=== PATIENT | female | born 1980 | race Hispanic/Latino ===

== ENCOUNTER 2020-01-11 11:31 | Emergency (ER) | payer OTHER ==
[2020-01-11 11:51] VITALS: BP 168/93
[2020-01-11] MEDS ORDERED: predniSONE 50 MG TAB PO STA (12:02)
[2020-01-11] MEDS ORDERED: ALBUTEROL 2.5 MG/3 ML NEBU IH ONE (12:02)
--- NOTE | 2020-01-11 12:04 | Emergency Department Report ---
Blank Doc - Documentation Documentation: 39-year-old female has no history of asthma presents emerged department compla ining of a flareup of cough congestion coryza shortness of breath that worsens with exertion and mucus production yellowish and greenish in nature. She has been taking her breathing treatments at home with no improvement of her symptoms presents emerge department for further evaluation and treatment options. This initial assessment/diagnostic orders/clinical plan/treatment(s) is/are subject to change based on patients health status, clinical progression and re- assessment by fellow clinical providers in the ED. Further treatment and workup at subsequent clinical providers discretion. Patient/guardian urged not to elope from the ED as their condition may be serious if not clinically assessed and managed. Initial orders include: Chest x-ray Albuterol/Atrovent/prednisone
--- NOTE | 2020-01-11 12:39 | XRay Report ---
CHEST 2 VIEWS INDICATION / CLINICAL INFORMATION: Cough, shortness of breath, congestion, history of asthma. COMPARISON: Chest 2 views from 04/07/2008. FINDINGS: SUPPORT DEVICES: None. HEART / MEDIASTINUM: No significant abnormality. LUNGS / PLEURA: There is mild bilateral bronchial thickening centrally. The lungs are otherwise clear . No significant pleural effusion. No pneumothorax. ADDITIONAL FINDINGS: No significant additional findings. IMPRESSION: Bilateral bronchial thickening could represent bronchitis or sequela of reactive airway disease. No o ther acute abnormality of the chest. Signer Name: Jamarcus Garcia MD Signed: 01/11/2020 12:33 PM Workstation Name: [id number]
[2020-01-11] MEDS ORDERED: IPRATROPIUM 0.02% NEBU 2.5 ML IH ONE (13:46)
[2020-01-11] MEDS ORDERED: predniSONE 50 MG TAB ONE (14:19)
--- NOTE | 2020-01-11 15:03 | Emergency Department Report ---
HPI - General Chief Complaint: Dyspnea/Respdistress Time Seen by Provider: 01/11/20 13:40 - HPI HPI: This is a 39-year-old female who presents to the emergency department with complaint of a 4-day history of chest congestion, wheezing, coughing and shortness of breath. The patient has a history of asthma, hypertension and "prediabetes." She denies any tobacco or illicit drug use. She denies any fever, chest pain, lower extremity swelling, nausea, vomiting, diaphoresis. She has a primary care physician, Dr. Chaudhary, but has not seen them regarding her symptoms. No recent travel or sick contacts at home. No known exposure to anyone with COVID-19. Symptoms worsen with exertion. No known alleviating factors. She has been using her nebulizer treatment with some transient relief. ED Past Medical Hx - Past Medical History Previous Medical History?: Yes Hx Hypertension: Yes Hx Diabetes: No ("Prediabetes") Hx Asthma: Yes - Surgical History Past Surgical History?: Yes Additional Surgical History: tubal ligation. tonsills and adnoids removed - Social History Smoking Status: Never Smoker Substance Use Type: None - Medications Home Medications: Home Medications Medication Instructions Recorded Confirmed Last Taken Type ALBUTEROL NEB's [Proventil 0.083% 2.5 mg IH Q6H PRN #1 box 01/11/20 Unknown Rx NEBS] Albuterol Mdi (or & Nicu Only) 2 puff IH QID PRN #8.5 gram 01/11/20 Unknown Rx [ProAir HFA Inhaler] predniSONE [Deltasone] 50 mg PO QDAY #5 tab 01/11/20 Unknown Rx ED Review of Systems ROS: Stated complaint: CAMPOS/CONGESTED Other details as noted in HPI Comment: All other systems reviewed and negative Constitutional: denies: chills, fever Eyes: denies: eye pain ENT: denies: ear pain, throat pain Respiratory: cough, wheezing Cardiovascular: denies: chest pain, edema Gastrointestinal: denies: abdominal pain, vomiting Genitourinary: denies: dysuria, discharge Musculoskeletal: denies: back pain, arthralgia Skin: denies: rash, lesions Neurological: denies: headache, weakness Physical Exam - Physical Exam Vital Signs: Vital Signs 01/11/20 01/11/20 11:50 14:24 Temperature 98.2 F Pulse Rate 95 H 85 Respiratory 22 20 Rate Blood Pressure 168/93 [Right] O2 Sat by Pulse 93 95 Oximetry Physical Exam: GENERAL: The patient is well-developed well-nourished. HENT: Normocephalic. Atraumatic. Patient has moist mucous membranes. EYES: Extraocular motions are intact. NECK: Supple. Trachea is midline. CHEST/LUNGS: Mild wheezing without the chest. No tachypnea or accessory muscle use. There is no respiratory distress noted. HEART/CARDIOVASCULAR: Regular. There is no tachycardia. There is no murmur. ABDOMEN: Abdomen is soft, nontender. Patient has normal bowel sounds. Morbidly obese habitus. SKIN: Skin is warm and dry. NEURO: The patient is awake, alert, and oriented. The patient is cooperative. The patient has no focal neurologic deficits. Normal speech. MUSCULOSKELETAL: There is no tenderness or deformity. There is no limitation range of motion. Th ED Course Vital Signs 01/11/20 01/11/20 11:50 14:24 Temperature 98.2 F Pulse Rate 95 H 85 Respiratory 22 20 Rate Blood Pressure 168/93 [Right] O2 Sat by Pulse 93 95 Oximetry ED Medical Decision Making - Radiology Data Radiology results: image reviewed interpreted by me: Chest x-ray does not show any acute process. There are no pleural effusions, obvious pneumonia and there is no pneumothorax. No significant cardiomegaly. - Medical Decision Making This patient presents with a 4-day history of some wheezing, coughing, chest congestion. Chest x-ray does not show any pneumonia, pleural effusions, or any other acute process. On examination the patient has some mild wheezing throughout the chest but there is no signs of any respiratory or acute distress. She was given a dose of prednisone and a breathing treatment with both albuterol and ipratropium. Upon reevaluation she is improved. Vital signs have been reassuring throughout her ED course of the being afebrile. The patient had a pulse ox of 93% initially but I have personally seen the oxygen saturation mostly around 95 to 97% on room air. All this appears most likely consistent with an asthma exacerbation or some bronchitis. However, given her symptoms and this current pandemic, I explained that COVID-19 cannot be ruled out as a source of her symptoms. We discussed isolation/quarantine from those that are elderly, immunocompromised or chronically ill/debilitated. I recommended outpatient COVID-19 testing, as we do not have any [id number] testing here in the emergency department. She will return to the emergency department with any worsening of her symptoms or with any acute distress. Critical Care Time: No Critical care attestation.: If time is entered above; I have spent that time in minutes in the direct care of this critically ill patient, excluding procedure time. ED Disposition Clinical Impression: Bronchospasm Hypertension Qualifiers: Hypertension type: essential hypertension Qualified Code(s): I10 - Essential (primary) hypertension Asthma exacerbation Qualifiers: Asthma severity: unspecified severity Asthma persistence: unspecified Qualified Code(s): J45.901 - Unspecified asthma with (acute) exacerbation Disposition: TO HOME OR SELFCARE Is pt being admited?: No Condition: Stable Instructions: Asthma, Adult, Bronchospasm, Adult, Hypertension, Adult, Hypertension (ED) Additional Instructions: Please follow-up with your primary care physician in the next few days. Return to the emergency department with any worsening of your symptoms, new or concerning symptoms not addressed during this current emergency department visit, or with any acute distress. Prescriptions: predniSONE [Deltasone] 50 mg PO QDAY #5 tab Albuterol Mdi (or & Nicu Only) [ProAir HFA Inhaler] 2 puff IH QID PRN #8.5 gram PRN Reason: Shortness Of Breath ALBUTEROL NEB's [Proventil 0.083% NEBS] 2.5 mg IH Q6H PRN #1 box PRN Reason: Wheezing Referrals: KAREN CHAUDHARY MD [Primary Care Provider] - 2-3 Days Forms: Work/School Release Form(ED) Time of Disposition: 15:03
== END 2020-01-11 15:39 | disposition home or self-care (01) ==
LOC: ED 11:31
DX: J45.901 Unspecified asthma with (acute) exacerbation (principal); I10 Essential (primary) hypertension; E11.9 Type 2 diabetes mellitus without complications; Z98.51 Tubal ligation status; Z98.890 Other specified postprocedural states; Z79.899 Other long term (current) drug therapy; Z88.0 Allergy status to penicillin
CPT/HCPCS: 71046; 94640; 99283; J7512